=== PATIENT | male | born 1935 | race Caucasian/White ===

== ENCOUNTER → 2017-10-29 | Outpatient (CLI) | payer MEDICARE ==
[~2017-10-29] MED LIST: AEC81 PO; AMIO200T44 PO; APIX5TAB PO; ATOR10 PO; CARB-119 PO; FAMO20TA8 PO; FERR-82 PO; IOPAMIDOL-370 100 ML VIAL IV ONE; METO-408 PO; METO50TA18 PO; MULT-1258 PO; NITR0.4T50 SL; NITR100C PO; POLY17PO4 PO; PROP20TA7 PO; SULF1TAB41 PO
[2017-10-29 14:57] LABS: CREATININE 1.2 mg/dL (0.5-1.5)
== END | disposition home or self-care (01) ==
LOC: RAH 14:18
PROVIDERS: ATTEND Physician Assistant Medical
DX: R07.9 Chest pain, unspecified (principal); R06.02 Shortness of breath; Q25.49 Other congenital malformations of aorta
CPT/HCPCS: 36415; 71275; 82565; 84520; Q9967

== ENCOUNTER 2017-10-31 09:38 | Inpatient (IN) | payer MEDICARE ==
[~2017-10-31] VITALS: Ht 175.3 cm; Wt 81.7 kg
[2017-10-31 10:00] LABS: EOSINOPHILS % (AUTO) 1.8 % (0.0-8.0); HEMATOCRIT 40.8 % (42-54); LYMPHOCYTES % (AUTO) 33.8 % (21.0-51.0); MEAN CORPUSCULAR HEMOGLOBIN 35.4 pg (27.0-33.0); MEAN CORPUSCULAR HGB CONC 35.1 g/dL (32.0-36.0); MEAN CORPUSCULAR VOLUME 100.9 fL (79-99); MONOCYTES % (AUTO) 11.2 % (3.0-13.0); NEUTROPHILS % (AUTO) 52.2 % (40.0-77.0); PLATELET COUNT (AUTO) 194 K/uL (130-400); RED BLOOD CELL COUNT(AUTO) 4.04 MIL/uL (4.50-6.20); WHITE BLOOD COUNT (AUTO) 3.8 K/uL (4.8-10.8)
[2017-10-31] MEDS ORDERED: ASPIRIN 325 MG TABLET ONE (10:09)
[2017-10-31 10:22] LABS: CREATININE 1.2 mg/dL (0.5-1.5); POTASSIUM 4.6 mmol/L (3.5-5.1)
[2017-10-31 10:23] LABS: INR 0.99 (0.85-1.15); PARTIAL THROMBOPLASTIN TIME 25.5 SEC (26.3-35.5); PROTHROMBIN TIME 10.4 SEC (9.6-11.6)
[2017-10-31 10:33] LABS: B-TYPE NATRIURETIC PEPTIDE 69 pg/mL (0-100)
[2017-10-31 10:36] LABS: ALBUMIN 3.5 g/dL (3.5-5.0); BILIRUBIN,TOTAL 0.3 mg/dL (0.2-1.0); CREATINE KINASE MB 2.7 ng/mL (0.5-3.6); TOTAL PROTEIN, SERUM 7.2 g/dL (6.0-8.3)
[2017-10-31] MEDS ORDERED: NITROGLYCERIN 1GM/1 INCH PACKET TD ONE (11:33)
[2017-10-31] MEDS ORDERED: ONDANSETRON HCL 4 MG/2 ML VIAL IV PRN (12:45)
[2017-10-31] MEDS ORDERED: MORPHINE SULFATE 2 MG/ML 1ML SYG IV PRN (12:45)
[2017-10-31] MEDS ORDERED: LACTULOSE 20 GM/30 ML UDCUP PO PRN (12:45)
[2017-10-31] MEDS: NITROGLYCERIN 1GM/1 INCH PACKET TD SCH ×2 (12:45→21:17)
[2017-10-31] MEDS ORDERED: ACETAMINOPHEN-CODEINE 300/30MG TAB PO PRN ×2 (12:45)
[2017-10-31] MEDS ORDERED: MORPHINE SULFATE 4 MG/1ML SYG IV PRN (12:45)
[2017-10-31] MEDS ORDERED: MAG HYDROX/AL HYDROX/SIMETH ES 30 ML SUSP UDCUP PO PRN (12:45)
[2017-10-31] MEDS ORDERED: ACETAMINOPHEN 325 MG TAB PO PRN ×2 (12:45)
[2017-10-31] MEDS ORDERED: GUAIFENESIN-DM 200/20 MG 10 ML PO PRN (12:45)
[2017-10-31] MEDS ORDERED: HYDRALAZINE HCL 20 MG/ML VIAL IV PRN (12:45)
[2017-10-31 13:13] VITALS: BP 142/76
[2017-10-31 14:02] LABS: CREATINE KINASE MB 8.4 ng/mL (0.5-3.6)
[2017-10-31 14:03] LABS: TROPONIN I 1.61 ng/mL (0.00-0.06)
[2017-10-31] MEDS ORDERED: PROP20TA7 PO (14:25)
[2017-10-31] MEDS ORDERED: MULT-1258 PO (14:25)
[2017-10-31] MEDS ORDERED: ATOR10 PO (14:25)
[2017-10-31] MEDS ORDERED: METO-408 PO (14:25)
[2017-10-31] MEDS ORDERED: AEC81 PO (14:25)
[2017-10-31] MEDS ORDERED: POLY17PO4 PO (14:25)
[2017-10-31] MEDS ORDERED: NITR0.4T50 SL (14:25)
[2017-10-31] MEDS ORDERED: POLYETHYLENE GLYCOL 3350 17 GM POWD.PACK PO PRN (14:45)
[2017-10-31] MEDS: ENOXAPARIN SODIUM 80 MG/0.8 ML SQ SCH ×2 (14:55→21:00)
[2017-10-31 16:12] LABS: CREATINE KINASE MB 10.5 ng/mL (0.5-3.6)
[2017-10-31 16:15] VITALS: BP 125/71
[2017-10-31 16:18] LABS: TROPONIN I 2.48 ng/mL (0.00-0.06)
[2017-10-31 19:30] VITALS: BP 146/79
[2017-10-31] MEDS: FAMOTIDINE 20MG TAB 20 MG TAB PO SCH (21:16)
[2017-10-31] MEDS: ATORVASTATIN CALCIUM 10 MG TABLET PO SCH (21:16)
[2017-10-31] MEDS: METOPROLOL TARTRATE 25 MG TAB PO SCH (21:16)
[2017-10-31] MEDS: CARBAMAZEPINE 200 MG TABLET PO SCH (21:17)
[2017-10-31 21:39] LABS: CREATINE KINASE MB 9.5 ng/mL (0.5-3.6)
[2017-10-31 21:47] LABS: TROPONIN I 2.54 ng/mL (0.00-0.06)
[2017-10-31 23:34] VITALS: BP 123/77
[2017-11-01] VITALS (12 sets, daily range): BP systolic 100–184; BP diastolic 57–106
[2017-11-01 04:10] LABS: CREATININE 1.3 mg/dL (0.5-1.5); POTASSIUM 3.9 mmol/L (3.5-5.1)
[2017-11-01] MEDS: NITROGLYCERIN 0.4 MG SL TAB SL PRN (04:31)
[2017-11-01] MEDS: NITROGLYCERIN 1GM/1 INCH PACKET TD SCH ×3 (04:33→20:38)
[2017-11-01] MEDS ORDERED: IOPAMIDOL-370 75 ML VIAL IV ONE (07:36)
[2017-11-01] MEDS ORDERED: HEPARIN SODIUM 1000UNIT/ML 10ML VIAL ONE (07:36)
[2017-11-01] MEDS ORDERED: LIDOCAINE HCL 2% 20ML ONE (07:36)
[2017-11-01] MEDS ORDERED: IOPAMIDOL-370 100 ML VIAL IV ONE (07:36)
[2017-11-01] MEDS: ENOXAPARIN SODIUM 80 MG/0.8 ML SQ SCH ×2 (09:00→20:39)
[2017-11-01] MEDS ORDERED: ENOXAPARIN SODIUM 40 MG/0.4 ML SYRINGE SQ SCH (09:00)
[2017-11-01] MEDS: PROPRANOLOL HCL 20 MG TAB PO SCH (12:29)
[2017-11-01] MEDS: METOPROLOL TARTRATE 25 MG TAB PO SCH ×2 (12:30→20:40)
[2017-11-01] MEDS: SULFAMETHOX-TMP DS 800/160 TAB PO SCH (12:30)
[2017-11-01] MEDS: ASPIRIN 325 MG TABLET PO SCH (12:30)
[2017-11-01] MEDS: MULTIVITAMIN TABLET PO SCH (12:30)
[2017-11-01] MEDS: CARBAMAZEPINE 200 MG TABLET PO SCH ×2 (12:42→20:38)
[2017-11-01] MEDS: FAMOTIDINE 20MG TAB 20 MG TAB PO SCH (20:40)
[2017-11-01] MEDS: ATORVASTATIN CALCIUM 40 MG TABLET PO SCH (20:40)
[2017-11-01] MEDS: ATORVASTATIN CALCIUM 10 MG TABLET PO SCH (20:40)
[2017-11-02 03:42] VITALS: BP 115/71
[2017-11-02 03:55] LABS: HEMATOCRIT 35.9 % (42-54); MEAN CORPUSCULAR HEMOGLOBIN 35.9 pg (27.0-33.0); MEAN CORPUSCULAR HGB CONC 35.5 g/dL (32.0-36.0); MEAN CORPUSCULAR VOLUME 101.1 fL (79-99); NUCLEATED RED BLOOD CELLS 0.1 % (0.0-0.19); PLATELET COUNT (AUTO) 186 K/uL (130-400); RED BLOOD CELL COUNT(AUTO) 3.55 MIL/uL (4.50-6.20); RED CELL DISTRIBUTION WIDTH 13.1 % (11.0-15.5); WHITE BLOOD COUNT (AUTO) 6.9 K/uL (4.8-10.8)
[2017-11-02 04:06] LABS: CREATININE 1.4 mg/dL (0.5-1.5); POTASSIUM 4.2 mmol/L (3.5-5.1)
[2017-11-02] MEDS: NITROGLYCERIN 1GM/1 INCH PACKET TD SCH ×3 (05:08→20:20)
[2017-11-02 07:14] VITALS: BP 130/77
[2017-11-02] MEDS: ASPIRIN 325 MG TABLET PO SCH (08:28)
[2017-11-02] MEDS: SULFAMETHOX-TMP DS 800/160 TAB PO SCH (08:28)
[2017-11-02] MEDS: PROPRANOLOL HCL 20 MG TAB PO SCH (08:28)
[2017-11-02] MEDS: METOPROLOL TARTRATE 25 MG TAB PO SCH ×2 (08:28→20:20)
[2017-11-02] MEDS: CARBAMAZEPINE 200 MG TABLET PO SCH ×2 (08:28→20:21)
[2017-11-02] MEDS: MULTIVITAMIN TABLET PO SCH (08:28)
[2017-11-02] MEDS: ENOXAPARIN SODIUM 80 MG/0.8 ML SQ SCH (08:29)
[2017-11-02 11:07] VITALS: BP 117/65
[2017-11-02 16:37] VITALS: BP 121/73
[2017-11-02] MEDS ORDERED: CEFUROXIME 1.5GM+NS 100ML 100 ML IV SCH (18:45)
[2017-11-02 19:29] VITALS: BP 125/64
[2017-11-02] MEDS: NITROGLYCERIN 0.4 MG SL TAB SL PRN (20:02)
[2017-11-02] MEDS: ATORVASTATIN CALCIUM 40 MG TABLET PO SCH (20:21)
[2017-11-02] MEDS: FAMOTIDINE 20MG TAB 20 MG TAB PO SCH (20:21)
[2017-11-02 23:45] VITALS: BP 123/71
[2017-11-03 03:55] VITALS: BP 129/75
[2017-11-03 04:11] LABS: HEMOGLOBIN A1C 5.5 % (4.0-6.0)
[2017-11-03] MEDS: NITROGLYCERIN 1GM/1 INCH PACKET TD SCH ×3 (05:02→20:36)
[2017-11-03] MEDS ORDERED: CEFUROXIME SODIUM 1.5 GM VIAL IVP SCH (06:00)
[2017-11-03 07:29] VITALS: BP 135/82
[2017-11-03] MEDS: SODIUM CHLORIDE 0.9% 1000ML 1,000 ML IV SCH (08:30)
[2017-11-03] MEDS ORDERED: SODIUM CHLORIDE 0.9% 1000ML 1,000 ML IV ONE (08:49)
[2017-11-03] MEDS ORDERED: ENOXAPARIN SODIUM 40 MG/0.4 ML SYRINGE SQ SCH (09:00)
[2017-11-03] MEDS: MULTIVITAMIN TABLET PO SCH (09:15)
[2017-11-03] MEDS: METOPROLOL TARTRATE 25 MG TAB PO SCH ×2 (09:15→20:36)
[2017-11-03] MEDS: SULFAMETHOX-TMP DS 800/160 TAB PO SCH (09:15)
[2017-11-03] MEDS: ASPIRIN 325 MG TABLET PO SCH (09:15)
[2017-11-03] MEDS: CARBAMAZEPINE 200 MG TABLET PO SCH ×2 (09:29→20:36)
[2017-11-03 11:43] VITALS: BP 129/72
[2017-11-03 16:11] VITALS: BP 141/75
[2017-11-03 19:42] VITALS: BP 133/78
[2017-11-03] MEDS: FAMOTIDINE 20MG TAB 20 MG TAB PO SCH (20:36)
[2017-11-03] MEDS: ATORVASTATIN CALCIUM 40 MG TABLET PO SCH (20:37)
[2017-11-03 23:46] VITALS: BP 132/74
[2017-11-04] VITALS (24 sets, daily range): BP systolic 96–145; BP diastolic 49–81
[2017-11-04 04:17] LABS: HEMATOCRIT 35.5 % (42-54); MEAN CORPUSCULAR HEMOGLOBIN 35.5 pg (27.0-33.0); MEAN CORPUSCULAR VOLUME 101.5 fL (79-99); NUCLEATED RED BLOOD CELLS 0.1 % (0.0-0.19); PLATELET COUNT (AUTO) 155 K/uL (130-400); RED CELL DISTRIBUTION WIDTH 12.8 % (11.0-15.5); WHITE BLOOD COUNT (AUTO) 5.2 K/uL (4.8-10.8)
[2017-11-04 04:28] LABS: CREATININE 1.3 mg/dL (0.5-1.5); POTASSIUM 4.2 mmol/L (3.5-5.1)
[2017-11-04 04:29] LABS: INR 0.97 (0.85-1.15); PARTIAL THROMBOPLASTIN TIME 27.2 SEC (26.3-35.5); PROTHROMBIN TIME 10.2 SEC (9.6-11.6)
[2017-11-04] MEDS: NITROGLYCERIN 1GM/1 INCH PACKET TD SCH (04:46)
[2017-11-04] MEDS: SODIUM CHLORIDE 0.9% 1000ML 1,000 ML IV SCH (04:47)
[2017-11-04] MEDS: METOPROLOL TARTRATE 25 MG TAB PO SCH (08:37)
[2017-11-04] MEDS ORDERED: NITROGLYCERIN 50 MG/D5% WATER 1 BOT ONE (15:28)
[2017-11-04] MEDS ORDERED: AMINOCAPROIC ACID 250 MG/ML 20 ML VIAL IV ONE ×2 (15:28→16:03)
[2017-11-04] MEDS ORDERED: PAPAVERINE HCL 30 MG/ML 2ML VIAL ONE (15:31)
[2017-11-04] MEDS ORDERED: OCTYL 2-CYANOACRYLATE 1 EACH TP ONE ×2 (15:31→18:53)
[2017-11-04] MEDS ORDERED: BACITRACIN 50,000 UNIT VIAL ONE (15:31)
[2017-11-04] MEDS ORDERED: THROMBIN-JMI 5000 UNIT/VIAL TP ONE (15:33)
[2017-11-04] MEDS ORDERED: HEPARIN SODIUM 1000UNIT/ML 10ML VIAL ONE ×2 (15:34→16:03)
[2017-11-04] MEDS ORDERED: CALCIUM CHLORIDE 100 MG/ML 10 ML SYG IVP ONE ×3 (15:34→17:57)
[2017-11-04] MEDS ORDERED: ROCURONIUM BROMIDE 10MG/1ML 5ML VL ONE ×2 (15:52→15:53)
[2017-11-04] MEDS ORDERED: SODIUM BICARB 8.4% 50ML SYRINGE ONE (15:53)
[2017-11-04] MEDS ORDERED: NEOSTIGMINE METHYLSULFATE 1MG/ML IV ONE (16:03)
[2017-11-04] MEDS ORDERED: FENTANYL CITRATE PF 50 MCG/1 ML 20ML VIAL IJ ONE (16:03)
[2017-11-04] MEDS ORDERED: MIDAZOLAM HCL 1 MG/ML 5ML VIAL ONE (16:03)
[2017-11-04] MEDS ORDERED: GLYCOPYRROLATE 0.2 MG/ML 5 ML VIAL ONE (16:03)
[2017-11-04] MEDS ORDERED: NOREPINEPHRINE BITARTRATE 1 MG/1 ML ML IV ONE (16:03)
[2017-11-04] MEDS ORDERED: ESMOLOL HCL 10 MG/ML 10 ML VIAL ONE (16:03)
[2017-11-04] MEDS ORDERED: EPINEPHRINE 1 MG/ML AMPULE ONE (16:03)
[2017-11-04] MEDS ORDERED: LIDOCAINE PF 2% 5ML ABBOJECT ONE (16:03)
[2017-11-04] MEDS ORDERED: PROTAMINE SULFATE 10 MG/ML 25ML VIAL IV ONE (16:03)
[2017-11-04] MEDS ORDERED: AMIODARONE HCL 900MG/18ML IV ONE (16:03)
[2017-11-04] MEDS ORDERED: PROPOFOL 10 MG/ML 20ML VIAL IV ONE (16:03)
[2017-11-04] MEDS ORDERED: MILRINONE-D5W 20 MG/100 ML 100 ML IV ONE (16:03)
[2017-11-04] MEDS ORDERED: KETAMINE HCL 100 MG/ML 5ML VIAL IJ ONE (16:04)
[2017-11-04 16:36] LABS: ABG BASE EXCESS 0.8 mmol/L (-2.0-3.0); ABG OXYGEN SATURATION 99.1 % (95.0-99.0); ABG PCO2 39 mmHg (35-48)
[2017-11-04 17:59] LABS: ABG OXYGEN SATURATION 89.5 % (95.0-99.0); HCO3,VENOUS BLOOD GAS 22.1 (21.0-28.0); PCO2,VENOUS BLOOD GAS 61 (35-48); PH,VENOUS BLOOD GAS 7.178 (7.350-7.450)
[2017-11-04 18:00] LABS: BASE EXCESS,VENOUS BLOOD GAS -6.8 (-2.0-3.0)
[2017-11-04] MEDS ORDERED: SODIUM CHLORIDE 0.9% 500ML 500 ML IV SCH (18:29)
[2017-11-04] MEDS ORDERED: AMINOCAPROIC ACID 15,000 MG in SODIUM CHLORIDE 0.9% 250 ML IV SCH (18:30)
[2017-11-04] MEDS ORDERED: EPINEPHRINE 2 MG in SODIUM CHLORIDE 0.9% 250 ML IV PRN (18:30)
[2017-11-04] MEDS ORDERED: SODIUM BICARB 8.4% 50ML SYRINGE IV PRN (18:30)
[2017-11-04] MEDS ORDERED: PROPOFOL 1000 MG/100 ML 100 ML IV PRN (18:30)
[2017-11-04] MEDS ORDERED: CALCIUM GLUCONATE 1 GM in SODIUM CHLORIDE 0.9% 50 ML IV PRN (18:30)
[2017-11-04] MEDS ORDERED: SODIUM CHLORIDE 0.9% 1000ML 1,000 ML IV SCH (18:30)
[2017-11-04] MEDS ORDERED: SODIUM CHLORIDE 0.9% 250 ML IV PRN (18:30)
[2017-11-04] MEDS ORDERED: GLUCAGON 1MG KIT 1 MG ML IM PRN (18:30)
[2017-11-04] MEDS ORDERED: POTASSIUM PHOS 15 mMOL+NS250ML 250 ML IV PRN (18:30)
[2017-11-04] MEDS ORDERED: SODIUM CHLORIDE 0.9% 10 ML VIAL IVP PRN (18:30)
[2017-11-04] MEDS ORDERED: ACETAMINOPHEN 325 MG TAB PO PRN (18:30)
[2017-11-04] MEDS ORDERED: NICARDIPINE HCL 100 MG in SODIUM CHLORIDE 0.9% 100 ML IV PRN (18:30)
[2017-11-04] MEDS ORDERED: NITROGLYCERIN 50 MG/D5% WATER 250 BOT IV SCH (18:30)
[2017-11-04] MEDS ORDERED: MAGNESIUM 2GM PREMIX 50ML 50 ML IV PRN (18:30)
[2017-11-04] MEDS ORDERED: ALBUMIN (HUMAN) 5% 250 ML IV PRN (18:30)
[2017-11-04] MEDS ORDERED: MORPHINE SULFATE 4 MG/1ML SYG IV PRN (18:30)
[2017-11-04] MEDS ORDERED: DEXTROSE 50%-WATER 50 ML DISP.SYRIN IV PRN (18:30)
[2017-11-04] MEDS ORDERED: MORPHINE SULFATE 2 MG/ML 1ML SYG IV PRN (18:30)
[2017-11-04] MEDS ORDERED: ACETAMINOPHEN 650 MG SUPPOSITORY RC PRN (18:30)
[2017-11-04 19:05] LABS: ABG BASE EXCESS -3.7 mmol/L (-2.0-3.0); ABG HCO3 21.7 mmol/L (21.0-28.0); ABG OXYGEN SATURATION 98.6 % (95.0-99.0); ABG PCO2 40 mmHg (35-48)
[2017-11-04 19:35] LABS: HEMATOCRIT 32.6 % (42-54); MEAN CORPUSCULAR HEMOGLOBIN 35.2 pg (27.0-33.0); MEAN CORPUSCULAR HGB CONC 34.5 g/dL (32.0-36.0); NUCLEATED RED BLOOD CELLS 0.1 % (0.0-0.19); PLATELET COUNT (AUTO) 166 K/uL (130-400); RED CELL DISTRIBUTION WIDTH 13.2 % (11.0-15.5); WHITE BLOOD COUNT (AUTO) 15.3 K/uL (4.8-10.8)
[2017-11-04 19:46] LABS: ABG BASE EXCESS -5.3 mmol/L (-2.0-3.0); ABG HCO3 20.2 mmol/L (21.0-28.0); ABG OXYGEN SATURATION 94.9 % (95.0-99.0); ABG PCO2 39 mmHg (35-48)
[2017-11-04] MEDS ORDERED: SODIUM BICARB 50MEQ 50ML VIAL ONE ×3 (19:46→23:33)
[2017-11-04 19:47] LABS: CREATININE 1.3 mg/dL (0.5-1.5); MAGNESIUM 1.4 mg/dL (1.80-2.40); PHOSPHORUS 4.6 mg/dL (2.5-4.9); POTASSIUM 3.6 mmol/L (3.5-5.1)
[2017-11-04] MEDS: INSULIN REGULAR, HUMAN 3ML 100 UNIT in SODIUM CHLORIDE 0.9% 99 ML IV SCH ×2 (20:11)
[2017-11-04] MEDS: NOREPINEPHRINE 4MG/NS 250ML 250 ML IV PRN ×2 (20:26→23:00)
[2017-11-04] MEDS: POTASSIUM CHLORIDE 20MEQ/100ML 100 ML IV PRN (20:39)
[2017-11-04 22:07] LABS: ABG BASE EXCESS -3.1 mmol/L (-2.0-3.0); ABG HCO3 21.9 mmol/L (21.0-28.0); ABG OXYGEN SATURATION 97.4 % (95.0-99.0); ABG PCO2 39 mmHg (35-48)
[2017-11-04] MEDS ORDERED: ALBUMIN (HUMAN) 5% 250 ML IV ONE (22:59)
[2017-11-04 23:31] LABS: ABG BASE EXCESS -4.2 mmol/L (-2.0-3.0); ABG HCO3 20.2 mmol/L (21.0-28.0); ABG OXYGEN SATURATION 95.5 % (95.0-99.0); ABG PCO2 34 mmHg (35-48)
[2017-11-05] VITALS (30 sets, daily range): BP systolic 90–144; BP diastolic 12–87
[2017-11-05 00:10] LABS: ABG OXYGEN SATURATION 95.3 % (95.0-99.0); ABG PCO2 37 mmHg (35-48)
[2017-11-05] MEDS: CEFUROXIME SODIUM 1.5 GM VIAL IVP SCH ×2 (01:13→15:17)
[2017-11-05] MEDS: WATER FOR INJECTION,STERILE 20 ML VIAL IJ SCH ×2 (01:13→15:17)
[2017-11-05 01:27] LABS: ABG BASE EXCESS 0.8 mmol/L (-2.0-3.0); ABG HCO3 24.5 mmol/L (21.0-28.0); ABG OXYGEN SATURATION 96.2 % (95.0-99.0); ABG PCO2 37 mmHg (35-48)
[2017-11-05] MEDS ORDERED: CEFUROXIME 1.5GM+NS 100ML 100 ML IV SCH (02:30)
[2017-11-05 04:14] LABS: HEMATOCRIT 29.5 % (42-54); MEAN CORPUSCULAR HEMOGLOBIN 34.8 pg (27.0-33.0); MEAN CORPUSCULAR HGB CONC 34.8 g/dL (32.0-36.0); MEAN CORPUSCULAR VOLUME 99.7 fL (79-99); PLATELET COUNT (AUTO) 140 K/uL (130-400); RED BLOOD CELL COUNT(AUTO) 2.96 MIL/uL (4.50-6.20); RED CELL DISTRIBUTION WIDTH 12.9 % (11.0-15.5); WHITE BLOOD COUNT (AUTO) 8.1 K/uL (4.8-10.8)
[2017-11-05] MEDS: HYDROCODONE/ACETAMINOPHEN 5/325 MG TAB PO PRN ×4 (04:27→22:29)
[2017-11-05 04:28] LABS: CREATININE 1.5 mg/dL (0.5-1.5); MAGNESIUM 2.1 mg/dL (1.80-2.40); PHOSPHORUS 1.1 mg/dL (2.5-4.9); POTASSIUM 3.3 mmol/L (3.5-5.1)
[2017-11-05] MEDS: POTASSIUM CHLORIDE 20MEQ/100ML 100 ML IV PRN ×2 (05:09→22:39)
[2017-11-05] MEDS: INSULIN REGULAR, HUMAN 3ML 100 UNIT in SODIUM CHLORIDE 0.9% 99 ML IV SCH ×2 (06:30)
[2017-11-05] MEDS: FAMOTIDINE/PF 20 MG/2 ML VIAL IV SCH (09:02)
[2017-11-05] MEDS: ONDANSETRON HCL 4 MG/2 ML VIAL IV PRN (10:05)
[2017-11-06] VITALS (23 sets, daily range): BP systolic 117–160; BP diastolic 63–91
[2017-11-06] MEDS: WATER FOR INJECTION,STERILE 20 ML VIAL IJ SCH (01:46)
[2017-11-06] MEDS: CEFUROXIME SODIUM 1.5 GM VIAL IVP SCH (01:47)
[2017-11-06 08:08] LABS: PHOSPHORUS 3.1 mg/dL (2.5-4.9); POTASSIUM 3.7 mmol/L (3.5-5.1)
[2017-11-06] MEDS: CARBAMAZEPINE 200 MG TABLET PO SCH ×2 (08:46→21:05)
[2017-11-06] MEDS: POTASSIUM CHLORIDE 20MEQ/100ML 100 ML IV PRN ×2 (08:46→14:17)
[2017-11-06] MEDS: FAMOTIDINE/PF 20 MG/2 ML VIAL IV SCH (08:46)
[2017-11-06] MEDS: INSULIN HUMULIN R 100 UNIT/ML 3ML SQ SCH ×3 (11:20→20:49)
[2017-11-06 11:33] LABS: APPEARANCE,URINE Clear (CLEAR); BILIRUBIN,URINE Negative (NEGATIVE); COLOR,URINE Yellow (YELLOW); GLUCOSE, URINE (UA) 250 mg/dL (NEGATIVE); KETONES,URINE Negative (NEGATIVE); LEUKOCYTE ESTERASE ,URINE Small (NEGATIVE); NITRATE,URINE Positive (NEGATIVE); OCCULT BLOOD,URINE Moderate (NEGATIVE); PROTEIN,URINE POS 2+ (NEGATIVE)
[2017-11-06 11:43] LABS: BACTERIA,URINE Rare /HPF (None Seen); SQUAMOUS EPITHELIAL CELL,UR Few /LPF (0-2); WBC,URINE 0-1 /HPF (0-1)
[2017-11-06] MEDS ORDERED: FUROSEMIDE 10 MG/ML 2ML VIAL IV SCH ×2 (13:30→14:04)
[2017-11-06 13:39] LABS: ABG HCO3 29.1 mmol/L (21.0-28.0); ABG OXYGEN SATURATION 92.3 % (95.0-99.0); ABG PCO2 37 mmHg (35-48)
[2017-11-06] MEDS: METOPROLOL TARTRATE 25 MG TAB PO SCH ×2 (13:47→21:07)
[2017-11-06 13:52] LABS: CREATININE 1.1 mg/dL (0.5-1.5)
[2017-11-06] MEDS: ALBUTEROL SULFATE 0.042% 1.25 MG/3 ML INH IH SCH ×3 (14:54→22:31)
[2017-11-06] MEDS: FAMOTIDINE 20MG TAB 20 MG TAB PO SCH (21:06)
[2017-11-06] MEDS: ATORVASTATIN CALCIUM 20 MG TABLET PO SCH (21:06)
[2017-11-06] MEDS: FUROSEMIDE 20 MG TABLET PO SCH (21:07)
[2017-11-06] MEDS ORDERED: DILTIAZEM HCL 125 MG/25 ML VIAL IV ONE (22:11)
[2017-11-07] VITALS (11 sets, daily range): BP systolic 107–145; BP diastolic 60–75
[2017-11-07] MEDS: ALBUTEROL SULFATE 0.042% 1.25 MG/3 ML INH IH SCH ×4 (02:03→20:56)
[2017-11-07 05:24] LABS: HEMATOCRIT 31.9 % (42-54); MEAN CORPUSCULAR HEMOGLOBIN 34.9 pg (27.0-33.0); MEAN CORPUSCULAR HGB CONC 34.5 g/dL (32.0-36.0); MEAN CORPUSCULAR VOLUME 101.1 fL (79-99); NUCLEATED RED BLOOD CELLS 0.1 % (0.0-0.19); PLATELET COUNT (AUTO) 152 K/uL (130-400); RED BLOOD CELL COUNT(AUTO) 3.15 MIL/uL (4.50-6.20); RED CELL DISTRIBUTION WIDTH 13.2 % (11.0-15.5); WHITE BLOOD COUNT (AUTO) 12.1 K/uL (4.8-10.8)
[2017-11-07 05:39] LABS: CREATININE 1.3 mg/dL (0.5-1.5); POTASSIUM 3.7 mmol/L (3.5-5.1)
[2017-11-07] MEDS: INSULIN HUMULIN R 100 UNIT/ML 3ML SQ SCH ×4 (06:17→21:00)
[2017-11-07] MEDS ORDERED: POTASSIUM CHLORIDE 10% ELIXIR 20 MEQ/15 ML UDCUP PO PRN (07:30)
[2017-11-07] MEDS ORDERED: CEFTRIAXONE 1GM/D5W 50ML 50 ML IV SCH (08:00)
[2017-11-07] MEDS: CEFTRIAXONE SODIUM 1 GM IVP SCH (08:26)
[2017-11-07] MEDS: FUROSEMIDE 20 MG TABLET PO SCH (08:27)
[2017-11-07] MEDS: ASPIRIN 81 MG EC TAB PO SCH (08:27)
[2017-11-07] MEDS: CARBAMAZEPINE 200 MG TABLET PO SCH ×2 (08:27→22:58)
[2017-11-07] MEDS: FAMOTIDINE 20MG TAB 20 MG TAB PO SCH ×2 (08:28→22:59)
[2017-11-07] MEDS: METOPROLOL TARTRATE 25 MG TAB PO SCH ×3 (08:28→22:59)
[2017-11-07] MEDS ORDERED: ENOXAPARIN SODIUM 30 MG/0.3 ML SQ SCH (09:00)
[2017-11-07] MEDS ORDERED: ALBUTEROL SULFATE 0.042% 1.25 MG/3 ML INH IH ONE (10:52)
[2017-11-07] MEDS: POTASSIUM CHLORIDE 20 MEQ ERTAB PO PRN ×2 (15:00→18:20)
[2017-11-07] MEDS: FUROSEMIDE 10 MG/ML 2ML VIAL IV SCH (22:57)
[2017-11-07] MEDS: ATORVASTATIN CALCIUM 20 MG TABLET PO SCH (22:58)
[2017-11-08] VITALS (13 sets, daily range): BP systolic 90–117; BP diastolic 57–75
[2017-11-08 04:17] LABS: HEMATOCRIT 30.5 % (42-54); MEAN CORPUSCULAR HEMOGLOBIN 35.4 pg (27.0-33.0); MEAN CORPUSCULAR VOLUME 100.9 fL (79-99); NUCLEATED RED BLOOD CELLS 0.1 % (0.0-0.19); PLATELET COUNT (AUTO) 150 K/uL (130-400); RED BLOOD CELL COUNT(AUTO) 3.02 MIL/uL (4.50-6.20); RED CELL DISTRIBUTION WIDTH 13.1 % (11.0-15.5); WHITE BLOOD COUNT (AUTO) 7.7 K/uL (4.8-10.8)
[2017-11-08 04:30] LABS: CREATININE 1.3 mg/dL (0.5-1.5); INR 0.98 (0.85-1.15); PARTIAL THROMBOPLASTIN TIME 37.1 SEC (26.3-35.5); POTASSIUM 3.3 mmol/L (3.5-5.1); PROTHROMBIN TIME 10.3 SEC (9.6-11.6)
[2017-11-08] MEDS: INSULIN HUMULIN R 100 UNIT/ML 3ML SQ SCH ×4 (05:59→20:29)
[2017-11-08] MEDS: ALBUTEROL SULFATE 0.042% 1.25 MG/3 ML INH IH SCH ×3 (06:42→18:46)
[2017-11-08] MEDS: FUROSEMIDE 10 MG/ML 2ML VIAL IV SCH ×2 (07:45→17:34)
[2017-11-08] MEDS: CEFTRIAXONE SODIUM 1 GM IVP SCH (08:00)
[2017-11-08] MEDS ORDERED: METOPROLOL TARTRATE 1 MG/ML 5ML VIAL IV PRN (08:15)
[2017-11-08] MEDS ORDERED: AMIODARONE HCL 150 MG in DEXTROSE 5%-WATER 100 ML IV SCH (08:15)
[2017-11-08] MEDS: AMIODARONE HCL 900 MG in DEXTROSE 5%-WATER 500 ML IV SCH (09:54)
[2017-11-08] MEDS: METOPROLOL TARTRATE 25 MG TAB PO SCH (13:30)
[2017-11-08] MEDS: POTASSIUM CHLORIDE 20 MEQ ERTAB PO PRN ×2 (16:33→17:27)
[2017-11-08] MEDS: DILTIAZEM 125MG+100 ML NS 125 ML IV SCH (16:37)
[2017-11-08] MEDS: ASPIRIN 81 MG EC TAB PO SCH (17:26)
[2017-11-08] MEDS: FAMOTIDINE 20MG TAB 20 MG TAB PO SCH ×2 (17:26→20:26)
[2017-11-08] MEDS: SIMETHICONE 80 MG TAB.CHEW PO SCH ×3 (17:26→20:27)
[2017-11-08] MEDS: POLYETHYLENE GLYCOL 3350 17 GM POWD.PACK PO SCH (17:26)
[2017-11-08] MEDS: CARBAMAZEPINE 200 MG TABLET PO SCH ×2 (17:26→20:27)
[2017-11-08] MEDS: METOPROLOL TARTRATE 50 MG TAB PO SCH ×2 (17:26→20:26)
[2017-11-08] MEDS ORDERED: POTASSIUM CHLORIDE 10 MEQ/TAB.SA PO ONE ×2 (20:33)
[2017-11-08] MEDS: ATORVASTATIN CALCIUM 20 MG TABLET PO SCH (20:51)
[2017-11-09] MEDS: ALBUTEROL SULFATE 0.042% 1.25 MG/3 ML INH IH SCH ×4 (01:53→18:54)
[2017-11-09 03:52] VITALS: BP 113/51
[2017-11-09 04:31] LABS: CREATININE 1.3 mg/dL (0.5-1.5); POTASSIUM 4.1 mmol/L (3.5-5.1)
[2017-11-09] MEDS: INSULIN HUMULIN R 100 UNIT/ML 3ML SQ SCH ×4 (06:11→21:00)
[2017-11-09] MEDS: FUROSEMIDE 10 MG/ML 2ML VIAL IV SCH (06:54)
[2017-11-09 07:00] VITALS: BP 119/78
[2017-11-09] MEDS: POLYETHYLENE GLYCOL 3350 17 GM POWD.PACK PO SCH (10:04)
[2017-11-09] MEDS: ASPIRIN 81 MG EC TAB PO SCH (10:05)
[2017-11-09] MEDS: SIMETHICONE 80 MG TAB.CHEW PO SCH ×4 (10:05→21:00)
[2017-11-09] MEDS: FAMOTIDINE 20MG TAB 20 MG TAB PO SCH ×2 (10:05→20:59)
[2017-11-09] MEDS: METOPROLOL TARTRATE 50 MG TAB PO SCH ×2 (10:05→21:00)
[2017-11-09] MEDS: CEFTRIAXONE SODIUM 1 GM IVP SCH (10:05)
[2017-11-09] MEDS: CARBAMAZEPINE 200 MG TABLET PO SCH ×2 (10:05→20:58)
[2017-11-09] MEDS: ENOXAPARIN SODIUM 40 MG/0.4 ML SYRINGE SQ SCH (10:06)
[2017-11-09 11:00] VITALS: BP 101/56
[2017-11-09] MEDS ORDERED: CALCIUM GLUCONATE 1 GM in SODIUM CHLORIDE 0.9% 50 ML IV SCH (11:00)
[2017-11-09] MEDS: DILTIAZEM 125MG+100 ML NS 125 ML IV SCH (11:36)
[2017-11-09] MEDS: AMIODARONE HCL 900 MG in DEXTROSE 5%-WATER 500 ML IV SCH (11:36)
[2017-11-09] MEDS: METOPROLOL TARTRATE 25 MG TAB PO SCH (12:51)
[2017-11-09 13:51] LABS: APPEARANCE,URINE Clear (CLEAR); BILIRUBIN,URINE Negative (NEGATIVE); COLOR,URINE Yellow (YELLOW); GLUCOSE, URINE (UA) Negative (NEGATIVE); KETONES,URINE Negative (NEGATIVE); LEUKOCYTE ESTERASE ,URINE Small (NEGATIVE); NITRATE,URINE Negative (NEGATIVE); OCCULT BLOOD,URINE Nonhemolyzed Trace (NEGATIVE); PROTEIN,URINE Trace (NEGATIVE); UROBILINOGEN,URINE 0.2 mg/dL (0.2-1.0)
[2017-11-09 14:08] LABS: BACTERIA,URINE Rare /HPF (None Seen); HYALINE CASTS, URINE 0-1 /LPF (0-1 /LPF); MUCUS,URINE Rare LPF (None Seen); RBC,URINE None Seen /HPF (0-1); TRANSITIONAL EPI CELLS,URINE Few /LPF (None Seen); WBC,URINE 0-1 /HPF (0-1)
[2017-11-09 16:00] VITALS: BP 115/72
[2017-11-09 19:41] VITALS: BP 130/64
[2017-11-09] MEDS: AMIODARONE HCL 200 MG TABLET PO SCH (20:58)
[2017-11-09] MEDS: ATORVASTATIN CALCIUM 20 MG TABLET PO SCH (20:58)
[2017-11-09 22:53] VITALS: BP 124/62
[2017-11-10] VITALS (7 sets, daily range): BP systolic 95–127; BP diastolic 43–80
[2017-11-10 04:41] LABS: BASOPHILS % (AUTO) 0.2 % (0.0-5.0); EOSINOPHILS % (AUTO) 1.1 % (0.0-8.0); HEMATOCRIT 30.8 % (42-54); LYMPHOCYTES % (AUTO) 11.8 % (21.0-51.0); MEAN CORPUSCULAR HEMOGLOBIN 35.8 pg (27.0-33.0); MEAN CORPUSCULAR HGB CONC 35.7 g/dL (32.0-36.0); MEAN CORPUSCULAR VOLUME 100.5 fL (79-99); MONOCYTES % (AUTO) 14.4 % (3.0-13.0); NEUTROPHILS % (AUTO) 72.5 % (40.0-77.0); NUCLEATED RED BLOOD CELLS 0.4 % (0.0-0.19); PLATELET COUNT (AUTO) 238 K/uL (130-400); RED BLOOD CELL COUNT(AUTO) 3.06 MIL/uL (4.50-6.20); RED CELL DISTRIBUTION WIDTH 12.8 % (11.0-15.5); WHITE BLOOD COUNT (AUTO) 9.9 K/uL (4.8-10.8)
[2017-11-10 04:44] LABS: CREATININE 1.3 mg/dL (0.5-1.5); POTASSIUM 3.9 mmol/L (3.5-5.1)
[2017-11-10] MEDS: ONDANSETRON HCL 4 MG/2 ML VIAL IV PRN (06:20)
[2017-11-10] MEDS ORDERED: FUROSEMIDE 10 MG/ML 4ML VIAL IV SCH (07:15)
[2017-11-10] MEDS: ALBUTEROL SULFATE 0.042% 1.25 MG/3 ML INH IH SCH ×3 (07:23→18:37)
[2017-11-10] MEDS: INSULIN HUMULIN R 100 UNIT/ML 3ML SQ SCH ×4 (07:30→21:00)
[2017-11-10] MEDS: CARBAMAZEPINE 200 MG TABLET PO SCH ×2 (08:27→21:47)
[2017-11-10] MEDS: FAMOTIDINE 20MG TAB 20 MG TAB PO SCH ×2 (08:27→21:51)
[2017-11-10] MEDS: SIMETHICONE 80 MG TAB.CHEW PO SCH ×4 (08:27→21:46)
[2017-11-10] MEDS: AMIODARONE HCL 200 MG TABLET PO SCH ×2 (08:28→21:46)
[2017-11-10] MEDS: METOPROLOL TARTRATE 50 MG TAB PO SCH ×2 (08:28→21:47)
[2017-11-10] MEDS: POLYETHYLENE GLYCOL 3350 17 GM POWD.PACK PO SCH (08:28)
[2017-11-10] MEDS: CEFTRIAXONE SODIUM 1 GM IVP SCH (08:28)
[2017-11-10] MEDS: ASPIRIN 81 MG EC TAB PO SCH (08:28)
[2017-11-10] MEDS: POTASSIUM CHLORIDE 20 MEQ ERTAB PO SCH (08:28)
[2017-11-10] MEDS: ENOXAPARIN SODIUM 40 MG/0.4 ML SYRINGE SQ SCH (08:29)
[2017-11-10] MEDS: METOPROLOL TARTRATE 25 MG TAB PO SCH (08:30)
[2017-11-10] MEDS ORDERED: FUROSEMIDE 40 MG TABLET PO SCH (09:00)
[2017-11-10] MEDS ORDERED: MAGNESIUM CITRATE 296 ML SOLUTION PO PRN (09:30)
[2017-11-10] MEDS: FUROSEMIDE 40 MG TABLET PO SCH (21:47)
[2017-11-10] MEDS: ATORVASTATIN CALCIUM 20 MG TABLET PO SCH (21:51)
[2017-11-11] MEDS: ALBUTEROL SULFATE 0.042% 1.25 MG/3 ML INH IH SCH ×4 (00:46→19:25)
[2017-11-11 03:58] VITALS: BP 122/85
[2017-11-11 05:01] LABS: HEMATOCRIT 30.1 % (42-54); MEAN CORPUSCULAR HEMOGLOBIN 34.5 pg (27.0-33.0); MEAN CORPUSCULAR HGB CONC 34.5 g/dL (32.0-36.0); NUCLEATED RED BLOOD CELLS 0.3 % (0.0-0.19); PLATELET COUNT (AUTO) 298 K/uL (130-400); RED BLOOD CELL COUNT(AUTO) 3.01 MIL/uL (4.50-6.20); RED CELL DISTRIBUTION WIDTH 13.4 % (11.0-15.5); WHITE BLOOD COUNT (AUTO) 10.8 K/uL (4.8-10.8)
[2017-11-11 05:10] LABS: CREATININE 1.3 mg/dL (0.5-1.5); POTASSIUM 3.6 mmol/L (3.5-5.1)
[2017-11-11 05:26] LABS: B-TYPE NATRIURETIC PEPTIDE 1380 pg/mL (0-100)
[2017-11-11] MEDS: INSULIN HUMULIN R 100 UNIT/ML 3ML SQ SCH ×4 (06:30→21:00)
[2017-11-11 07:45] VITALS: BP 101/61
[2017-11-11] MEDS: AMIODARONE HCL 200 MG TABLET PO SCH ×2 (08:15→21:26)
[2017-11-11] MEDS: FUROSEMIDE 40 MG TABLET PO SCH ×2 (08:15→21:27)
[2017-11-11] MEDS: APIXABAN 2.5 MG TABLET PO SCH ×2 (08:15→21:26)
[2017-11-11] MEDS: ASPIRIN 81 MG EC TAB PO SCH (08:15)
[2017-11-11] MEDS: METOPROLOL TARTRATE 50 MG TAB PO SCH ×2 (08:15→21:26)
[2017-11-11] MEDS: FAMOTIDINE 20MG TAB 20 MG TAB PO SCH ×2 (08:15→21:26)
[2017-11-11] MEDS: CARBAMAZEPINE 200 MG TABLET PO SCH ×2 (08:15→21:26)
[2017-11-11] MEDS: POTASSIUM CHLORIDE 20 MEQ ERTAB PO SCH (08:15)
[2017-11-11] MEDS: SIMETHICONE 80 MG TAB.CHEW PO SCH ×3 (08:15→21:27)
[2017-11-11] MEDS: CEFTRIAXONE SODIUM 1 GM IVP SCH (08:16)
[2017-11-11] MEDS: POLYETHYLENE GLYCOL 3350 17 GM POWD.PACK PO SCH (08:16)
[2017-11-11] MEDS: METOPROLOL TARTRATE 25 MG TAB PO SCH (08:17)
[2017-11-11 12:01] VITALS: BP 96/61
[2017-11-11 16:40] VITALS: BP 98/61
[2017-11-11 19:27] VITALS: BP 100/47
[2017-11-11] MEDS: ATORVASTATIN CALCIUM 20 MG TABLET PO SCH (21:27)
[2017-11-11 23:28] VITALS: BP 96/44
[2017-11-12] MEDS: ALBUTEROL SULFATE 0.042% 1.25 MG/3 ML INH IH SCH ×3 (00:39→11:01)
[2017-11-12 03:54] VITALS: BP 97/50
[2017-11-12 04:32] LABS: HEMATOCRIT 28.7 % (42-54); MEAN CORPUSCULAR HEMOGLOBIN 35.4 pg (27.0-33.0); MEAN CORPUSCULAR HGB CONC 35.3 g/dL (32.0-36.0); MEAN CORPUSCULAR VOLUME 100.2 fL (79-99); NUCLEATED RED BLOOD CELLS 0.2 % (0.0-0.19); PLATELET COUNT (AUTO) 299 K/uL (130-400); RED BLOOD CELL COUNT(AUTO) 2.86 MIL/uL (4.50-6.20); RED CELL DISTRIBUTION WIDTH 13.2 % (11.0-15.5); WHITE BLOOD COUNT (AUTO) 8.9 K/uL (4.8-10.8)
[2017-11-12 04:47] LABS: CREATININE 1.3 mg/dL (0.5-1.5); POTASSIUM 3.6 mmol/L (3.5-5.1)
[2017-11-12] MEDS: INSULIN HUMULIN R 100 UNIT/ML 3ML SQ SCH ×3 (06:34→16:10)
[2017-11-12 07:46] VITALS: BP 97/65
[2017-11-12 09:30] VITALS: BP 106/69
[2017-11-12] MEDS: POLYETHYLENE GLYCOL 3350 17 GM POWD.PACK PO SCH (09:31)
[2017-11-12] MEDS: POTASSIUM CHLORIDE 20 MEQ ERTAB PO SCH (09:31)
[2017-11-12] MEDS: ASPIRIN 81 MG EC TAB PO SCH (09:31)
[2017-11-12] MEDS: APIXABAN 2.5 MG TABLET PO SCH (09:31)
[2017-11-12] MEDS: FAMOTIDINE 20MG TAB 20 MG TAB PO SCH (09:31)
[2017-11-12] MEDS: CARBAMAZEPINE 200 MG TABLET PO SCH (09:31)
[2017-11-12] MEDS: SIMETHICONE 80 MG TAB.CHEW PO SCH ×2 (09:32→12:41)
[2017-11-12] MEDS: FUROSEMIDE 40 MG TABLET PO SCH (09:32)
[2017-11-12] MEDS: METOPROLOL TARTRATE 50 MG TAB PO SCH (09:32)
[2017-11-12] MEDS: AMIODARONE HCL 200 MG TABLET PO SCH (09:32)
[2017-11-12] MEDS ORDERED: DOXYCYCLINE 100MG+NS 250ML 250 ML IV SCH (10:00)
[2017-11-12 11:32] VITALS: BP 92/57
[2017-11-12 16:31] VITALS: BP 107/65
[2018-02-23] MEDS ORDERED: CARB-119 PO ×2 (11:33)
[2018-02-23] MEDS ORDERED: APIX5TAB PO (11:33)
[2018-02-23] MEDS ORDERED: METO50TA18 PO (11:33)
[2018-02-23] MEDS ORDERED: NITR100C PO (11:33)
[2018-02-23] MEDS ORDERED: FERR-82 PO (11:33)
[2018-02-23] MEDS ORDERED: SULF1TAB41 PO (11:33)
[2018-02-23] MEDS ORDERED: FAMO20TA8 PO (11:34)
== END 2017-11-12 18:00 | DRG 233 ==
LOC: EDH 09:38 → OBSVTOIN 11:32 → EDHIP 11:32 → 2AH 13:01 → 2CV 11-04 08:47 → 2CH 11-05 08:15 → 2AH 11-07 11:47
PROVIDERS: ADMIT Internal Medicine; ATTEND Internal Medicine
PROC: 4A023N7 Measurement of Cardiac Sampling and Pressure, Left Heart, Percutaneous Approach (ICD-10-PCS; principal; 2017-11-01)
PROC: B2111ZZ Fluoroscopy of Multiple Coronary Arteries using Low Osmolar Contrast (ICD-10-PCS; 2017-11-01)
PROC: B2131ZZ Fluoroscopy of Multiple Coronary Artery Bypass Grafts using Low Osmolar Contrast (ICD-10-PCS; 2017-11-04)
PROC: 02100Z9 Bypass Coronary Artery, One Artery from Left Internal Mammary, Open Approach (ICD-10-PCS; 2017-11-04)
PROC: 5A1935Z Respiratory Ventilation, Less than 24 Consecutive Hours (ICD-10-PCS; 2017-11-04)
PROC: 06BQ4ZZ Excision of Left Saphenous Vein, Percutaneous Endoscopic Approach (ICD-10-PCS; 2017-11-04)
PROC: 021109W Bypass Coronary Artery, Two Arteries from Aorta with Autologous Venous Tissue, Open Approach (ICD-10-PCS; 2017-11-04)
PROC: 0BH17EZ Insertion of Endotracheal Airway into Trachea, Via Natural or Artificial Opening (ICD-10-PCS; 2017-11-04)
PROC: 0W9B30Z Drainage of Left Pleural Cavity with Drainage Device, Percutaneous Approach (ICD-10-PCS; 2017-11-08)
DX: I25.110 Atherosclerotic heart disease of native coronary artery with unstable angina pectoris (principal); I21.4 Non-ST elevation (NSTEMI) myocardial infarction; J90 Pleural effusion, not elsewhere classified; I50.33 Acute on chronic diastolic (congestive) heart failure; E87.70 Fluid overload, unspecified; I48.0 Paroxysmal atrial fibrillation; D62 Acute posthemorrhagic anemia; Z93.6 Other artificial openings of urinary tract status; G50.0 Trigeminal neuralgia; I48.92 Unspecified atrial flutter; N39.0 Urinary tract infection, site not specified; J98.11 Atelectasis; L03.90 Cellulitis, unspecified; I24.9 Acute ischemic heart disease, unspecified; E66.9 Obesity, unspecified; E78.5 Hyperlipidemia, unspecified; I10 Essential (primary) hypertension; F17.200 Nicotine dependence, unspecified, uncomplicated; I71.9 Aortic aneurysm of unspecified site, without rupture; N35.9 Urethral stricture, unspecified; Z79.01 Long term (current) use of anticoagulants; Z87.440 Personal history of urinary (tract) infections; Z98.49 Cataract extraction status, unspecified eye
CPT/HCPCS: 32557; 36415; 36600; 70450; 71045; 71046; 71250; 71275; 74176; 76942; 80048; 80053; 81001; 82330; 82435; 82550; 82553; 82565; 82803; 82947; 82948; 83036; 83605; 83735; 83874; 83880; 84100; 84132; 84295; 84484; 84520; 85018; 85025; 85027; 85347; 85610; 85730; 86850; 86900; 86901; 86922; 87088; 87186; 93005; 93306; 93458; 93880; 94002; 94003; 94010; 94150; 94640; 94664; 97039; A4218; A7048; C1760; C1894; C9113; J0171; J0282; J0360; J0696; J0697; J1644; J1650; J1815; J1940; J2001; J2250; J2260; J2405; J2440; J2704; J2710; J2720; J3010; J3475; J3480; J3490; J7030; J7040; J7060; P9045; Q9967

== ENCOUNTER 2018-02-24 05:30 | Observation (INO) | payer MEDICARE ==
[2018-02-23 11:02] VITALS: BP 128/67
[2018-02-23 11:16] LABS: CREATININE 1.3 mg/dL (0.5-1.5); POTASSIUM 4.5 mmol/L (3.5-5.1)
[2018-02-23 11:19] LABS: BASOPHILS % (AUTO) 0.6 % (0.0-5.0); EOSINOPHILS % (AUTO) 2.2 % (0.0-8.0); HEMATOCRIT 37.4 % (42-54); LYMPHOCYTES % (AUTO) 28.1 % (21.0-51.0); MEAN CORPUSCULAR HEMOGLOBIN 35.9 pg (27.0-33.0); MEAN CORPUSCULAR HGB CONC 35.1 g/dL (32.0-36.0); MEAN CORPUSCULAR VOLUME 102.3 fL (79-99); MONOCYTES % (AUTO) 12.3 % (3.0-13.0); NEUTROPHILS % (AUTO) 56.8 % (40.0-77.0); NUCLEATED RED BLOOD CELLS 0.1 % (0.0-0.19); PLATELET COUNT (AUTO) 201 K/uL (130-400); RED BLOOD CELL COUNT(AUTO) 3.66 MIL/uL (4.50-6.20); RED CELL DISTRIBUTION WIDTH 13.9 % (11.0-15.5); WHITE BLOOD COUNT (AUTO) 4.4 K/uL (4.8-10.8)
[2018-02-23 11:39] LABS: INR 1.02 (0.85-1.15); PARTIAL THROMBOPLASTIN TIME 27.1 SEC (26.3-35.5); PROTHROMBIN TIME 10.7 SEC (9.6-11.6)
[2018-02-23 12:05] LABS: APPEARANCE,URINE Cloudy (CLEAR); BILIRUBIN,URINE Negative (NEGATIVE); COLOR,URINE Yellow (YELLOW); GLUCOSE, URINE (UA) Negative (NEGATIVE); KETONES,URINE Negative (NEGATIVE); LEUKOCYTE ESTERASE ,URINE Small (NEGATIVE); NITRATE,URINE Negative (NEGATIVE); OCCULT BLOOD,URINE Large (NEGATIVE); PROTEIN,URINE POS 1+ (NEGATIVE); UROBILINOGEN,URINE 0.2 mg/dL (0.2-1.0)
[2018-02-23 12:36] LABS: RBC,URINE 26-50 /HPF (0-1)
[2018-02-23 12:37] LABS: BACTERIA,URINE Few /HPF (None Seen); SQUAMOUS EPITHELIAL CELL,UR Rare /HPF (0-2)
[2018-02-23] MEDS: CEFTRIAXONE SODIUM 1 GM IVP SCH (13:15)
[2018-02-24] VITALS (29 sets, daily range): BP systolic 130–156; BP diastolic 71–89
[~2018-02-24] VITALS: Ht 172.7 cm; Wt 76.3 kg
[~2018-02-24 05:30] MED LIST changes: -AMIO200T44 PO; -IOPAMIDOL-370 100 ML VIAL IV ONE; -METO-408 PO; -NITR0.4T50 SL
[2018-02-24] MEDS: LACTATED RINGERS 1000ML 1,000 ML IV SCH ×2 (06:48→07:36)
[2018-02-24] MEDS: GENTAMICIN SULFATE 240 MG in SODIUM CHLORIDE 0.9% 100 ML IV SCH ×2 (06:49→07:30)
[2018-02-24] MEDS ORDERED: AMIO200T44 PO (06:55)
[2018-02-24] MEDS ORDERED: ONDANSETRON HCL 4 MG/2 ML VIAL ONE (07:37)
[2018-02-24] MEDS ORDERED: LIDOCAINE PF 2% 5ML ABBOJECT ONE (07:37)
[2018-02-24] MEDS ORDERED: DEXAMETHASONE SOD PHOSPHATE 10MG/ML 1ML VIAL ONE (07:37)
[2018-02-24] MEDS ORDERED: PROPOFOL 10 MG/ML 20ML VIAL IV ONE (07:37)
[2018-02-24] MEDS ORDERED: GLYCOPYRROLATE 0.2 MG/ML 5 ML VIAL ONE (07:37)
[2018-02-24] MEDS ORDERED: FENTANYL CITRATE PF 50 MCG/1 ML 2ML VIAL ONE ×2 (07:38→08:17)
[2018-02-24] MEDS ORDERED: MIDAZOLAM HCL 1 MG/ML 2ML VIAL ONE (07:38)
[2018-02-24] MEDS: CEFTRIAXONE SODIUM 1 GM IVP SCH ×2 (07:45→16:00)
[2018-02-24] MEDS ORDERED: EPHEDRINE SULFATE 50 MG/ML AMPULE ONE (07:51)
[2018-02-24] MEDS ORDERED: MEPERIDINE-PF 25 MG/ML SYG ONE (10:05)
[2018-02-24] MEDS ORDERED: POLYETHYLENE GLYCOL 3350 17 GM POWD.PACK PO PRN (13:15)
[2018-02-24] MEDS: CARBAMAZEPINE 200 MG TAB.ER.12H PO SCH ×2 (14:00→21:10)
[2018-02-24] MEDS: SODIUM CHLORIDE 0.9% 1000ML 1,000 ML IV SCH (15:30)
[2018-02-24] MEDS ORDERED: ACETAMINOPHEN 325 MG TAB PO PRN (15:30)
[2018-02-24] MEDS ORDERED: MEPERIDINE-PF 75 MG/ML SYG IM PRN (15:30)
[2018-02-24] MEDS ORDERED: ONDANSETRON HCL MDV 20ML 2 MG/ML VIAL IVP PRN (15:30)
[2018-02-24] MEDS ORDERED: ACETAMINOPHEN-CODEINE 300/30MG TAB PO PRN (15:30)
[2018-02-24] MEDS: ATORVASTATIN CALCIUM 10 MG TABLET PO SCH (20:36)
[2018-02-24] MEDS: NITROFURANTOIN MONOHYD/M-CRYST 100 MG CAPSULE PO SCH (20:36)
[2018-02-24] MEDS: METOPROLOL TARTRATE 50 MG TAB PO SCH (20:36)
[2018-02-25] MEDS: SODIUM CHLORIDE 0.9% 1000ML 1,000 ML IV SCH ×3 (04:07→21:46)
[2018-02-25 04:28] VITALS: BP 139/84
[2018-02-25 04:32] LABS: HEMATOCRIT 36.1 % (42-54); MEAN CORPUSCULAR HGB CONC 34.9 g/dL (32.0-36.0); MEAN CORPUSCULAR VOLUME 100.4 fL (79-99); PLATELET COUNT (AUTO) 187 K/uL (130-400); RED CELL DISTRIBUTION WIDTH 13.7 % (11.0-15.5); WHITE BLOOD COUNT (AUTO) 10.4 K/uL (4.8-10.8)
[2018-02-25 04:44] LABS: CREATININE 1.2 mg/dL (0.5-1.5)
[2018-02-25 08:00] VITALS: BP 147/83
[2018-02-25] MEDS: MULTIVITAMIN WITH MINERALS TABLET PO SCH (09:53)
[2018-02-25] MEDS: FERROUS SULFATE 325 MG TABLET.DR PO SCH (09:53)
[2018-02-25] MEDS: METOPROLOL TARTRATE 50 MG TAB PO SCH ×2 (09:53→21:36)
[2018-02-25] MEDS: CARBAMAZEPINE 200 MG TAB.ER.12H PO SCH ×2 (09:53→21:36)
[2018-02-25] MEDS: ASPIRIN 81 MG EC TAB PO SCH (09:53)
[2018-02-25] MEDS: AMIODARONE HCL 200 MG TABLET PO SCH (09:53)
[2018-02-25] MEDS: FAMOTIDINE 20MG TAB 20 MG TAB PO SCH (09:54)
[2018-02-25] MEDS: NITROFURANTOIN MONOHYD/M-CRYST 100 MG CAPSULE PO SCH ×2 (09:54→21:36)
[2018-02-25 11:39] VITALS: BP 134/77
[2018-02-25 15:48] VITALS: BP 139/76
[2018-02-25] MEDS: CEFTRIAXONE SODIUM 1 GM IVP SCH (16:12)
[2018-02-25 19:30] VITALS: BP 138/75
[2018-02-25] MEDS: ATORVASTATIN CALCIUM 10 MG TABLET PO SCH (21:37)
[2018-02-26 00:32] VITALS: BP 148/79
[2018-02-26 04:25] VITALS: BP 146/80
[2018-02-26 04:46] LABS: HEMATOCRIT 33.2 % (42-54); MEAN CORPUSCULAR HEMOGLOBIN 36.6 pg (27.0-33.0); MEAN CORPUSCULAR HGB CONC 36.2 g/dL (32.0-36.0); MEAN CORPUSCULAR VOLUME 101.2 fL (79-99); PLATELET COUNT (AUTO) 154 K/uL (130-400); RED BLOOD CELL COUNT(AUTO) 3.28 MIL/uL (4.50-6.20); RED CELL DISTRIBUTION WIDTH 13.9 % (11.0-15.5); WHITE BLOOD COUNT (AUTO) 10.2 K/uL (4.8-10.8)
[2018-02-26 05:04] LABS: POTASSIUM 3.6 mmol/L (3.5-5.1)
[2018-02-26 07:56] VITALS: BP 144/82
[2018-02-26] MEDS: NITROFURANTOIN MONOHYD/M-CRYST 100 MG CAPSULE PO SCH (08:53)
[2018-02-26] MEDS: ASPIRIN 81 MG EC TAB PO SCH (08:53)
[2018-02-26] MEDS: FAMOTIDINE 20MG TAB 20 MG TAB PO SCH (08:53)
[2018-02-26] MEDS: AMIODARONE HCL 200 MG TABLET PO SCH (08:53)
[2018-02-26] MEDS: CARBAMAZEPINE 200 MG TAB.ER.12H PO SCH (08:53)
[2018-02-26] MEDS: METOPROLOL TARTRATE 50 MG TAB PO SCH (08:53)
[2018-02-26] MEDS: MULTIVITAMIN WITH MINERALS TABLET PO SCH (08:53)
[2018-02-26] MEDS: FERROUS SULFATE 325 MG TABLET.DR PO SCH (08:54)
[2018-02-26] MEDS: SODIUM CHLORIDE 0.9% 1000ML 1,000 ML IV SCH (08:58)
[2018-02-26 12:13] VITALS: BP 150/81
== END 2018-02-26 16:35 | disposition home or self-care (01) ==
LOC: DAH 05:30 → DAHIP 05:31 → 3CH 12:25
PROVIDERS: ADMIT Urology; ATTEND Urology
DX: N21.0 Calculus in bladder (principal); Z95.1 Presence of aortocoronary bypass graft; E78.5 Hyperlipidemia, unspecified; Z79.899 Other long term (current) drug therapy
CPT/HCPCS: 36415 ×3; 51050; 71046; 80048 ×3; 81001; 82360; 85025; 85027 ×2; 85610; 85730; 87088; 88300; 93005; 96365; 96375 ×2; A4218 ×2; A4315; A4344; A4358; A4600; A4606; A4930; C1769; G0168; G0378 ×59; J0696 ×2; J1100; J1580; J2001; J2175; J2250; J2405; J2704; J3010 ×2; J3490 ×2; J7030 ×2; J7120